=== PATIENT | female | born 1960 | race African-American/Black ===

== ENCOUNTER 2016-12-16 15:51 | Emergency (ER) | payer SELFPAY ==
[~2016-12-16] VITALS: Ht 160 cm; Wt 59.0 kg
[~2016-12-16 15:51] MED LIST: AMOX500T PO; CEPH-264 PO; CHLO15MO2 PO; HYDR-971 PO; PHEN-318 PO
[2016-12-16 16:55] VITALS: BP 150/70
[2016-12-16] MEDS ORDERED: DIPHTH,PERTUSS(ACELL),TET TOX 0.5 ML DISP.SYRIN. VAX IM ONE (17:45)
--- NOTE | 2016-12-16 18:04 | PHYS DOC ---
Past Medical History Past Medical History: No Pertinent History Past Surgical History: No Surgical History Alcohol Use: Heavy Additional Information: pt denies 12/16/16 Drug Use: None Adult General Chief Complaint Chief Complaint: SKIN RASH/ABSCESS HPI HPI Patient is a 56 year old female who presents with skin infections to bilateral lower extremity that began 2 weeks ago after wearing black socks at work. She states she started itching her lower extremities from wearing the socks and developed areas of redness. Patient denies any fever. Review of Systems Review of Systems Constitutional: See history of present illness Musculoskeletal: Denies back pain or joint pain [] Integument: Skin infection Neurologic: Denies headache, focal weakness or sensory changes [] Endocrine: Denies polyuria or polydipsia [] Current Medications Current Medications Current Medications Medications (Trade) Dose Ordered Sig/Lida Start Time Stop Time Status Last Admin Dose Admin Diphtheria/ Tetanus/Acell Pertussis (Boostrix) 0.5 ml ONCE ONCE 12/16/16 17:45 12/16/16 17:46 DC Allergies Allergies Allergies Coded Allergies Type Severity Reaction Last Updated Verified No Known Drug Allergies 03/01/14 No Physical Exam Physical Exam Constitutional: Well developed, well nourished, no acute distress, non-toxic appearance. [] Skin: Left lateral lower extremity with small amount of scattered areas of cellulitis. Right medial lower extremity with mild amount of red areas consistent with cellulitis. +2 bilateral pedal pulses. Negative Homans sign bilaterally. Back: No tenderness, no CVA tenderness. [] Extremities: No tenderness, no cyanosis, no clubbing, ROM intact, no edema. [] Neurologic: Alert and oriented X 3, normal motor function, normal sensory function, no focal deficits noted. [] Psychologic: Affect normal, judgement normal, mood normal. [] Current Patient Data Vital Signs Vital Signs Date Time Temp Pulse Resp B/P Pulse Ox O2 Delivery O2 Flow Rate FiO2 12/16/16 16:55 98.6 69 18 150/70 99 Room Air 98.6 EKG EKG [] Radiology/Procedures Radiology/Procedures [] Course & Med Decision Making Course & Med Decision Making Pertinent Labs and Imaging studies reviewed. (See chart for details) Patient has cellulitis to bilateral lower extremity which could've occurred from contact dermatitis from the socks she had to wear at work 2 weeks ago. Tetanus was updated, discharged with Bactrim for 10 days. Instructed to keep the area clean and dry. Recommended she does not wear long soaks until the infection has cleared up. Dragon Disclaimer Dragon Disclaimer This electronic medical record was generated, in whole or in part, using a voice recognition dictation system. Departure Departure Impression: Primary Impression: Cellulitis of lower extremity Disposition: HOME, SELF-CARE Condition: STABLE Referrals: NO PCP (PCP) Follow-up with your doctor in one week Patient Instructions: Cellulitis, [id number] Additional Instructions: You have skin infection to your lower extremities. Keep the area clean and dry. Complete your antibiotics. Do not wear socks over the infection. Scripts Sulfamethoxazole/Trimethoprim (Bactrim Ds Tablet)1 Each Tablet1 Tab PO BID #20 TAB Prov:FRANCO ZENDEJAS APRN 12/16/16 Problem Qualifiers Primary Impression: Cellulitis of lower extremity Laterality: unspecified laterality Qualified Code: L03.119 - Cellulitis of unspecified part of limb FRANCO ZENDEJAS APRN Dec 16, 2016 18:04
[2016-12-16] MEDS ORDERED: SULF1TAB24 PO (18:09)
== END 2016-12-16 18:23 | disposition home or self-care (01) ==
LOC: ER 15:51
DX: L03.116 Cellulitis of left lower limb (principal); L03.115 Cellulitis of right lower limb
CPT/HCPCS: 90471; 90715; 99283-25

== ENCOUNTER 2017-10-29 19:52 | Emergency (ER) | payer SELFPAY ==
[2017-10-29 20:52] LABS: BILIRUBIN,URINE NEGATIVE (NEG); CLARITY,URINE TURBID; COLOR,URINE YELLOW; GLUCOSE,URINE NEGATIVE (NEG); NITRITE,URINE NEGATIVE (NEG); PH,URINE 8.5; PROTEIN,URINE 100 mg/dL (NEG-TRACE)
[2017-10-29 20:58] LABS: AMORPHOUS SEDIMENT,UR PRESENT /HPF; BACTERIA,URINE FEW /HPF (0-FEW); RBC,URINE 0 /HPF (0-2); SQUAMOUS EPITHELIAL CELL,UR OCC /LPF
[2017-10-29] MEDS ORDERED: FAMOTIDINE 20 MG/2 ML VIAL IVP (21:00)
[2017-10-29] MEDS ORDERED: ONDANSETRON PF 4 MG/2 ML VIAL. IV (21:00)
[2017-10-29] MEDS ORDERED: IV NORMAL SALINE 1000ML BAG 1,000 ML IV (21:00)
[2017-10-29] MEDS ORDERED: CONTRAST GIVEN MC (21:15)
[2017-10-29] MEDS ORDERED: IOHEXOL 300 MG/ML 100ML VIAL. IV (21:30)
== END 2017-10-29 21:52 | disposition left against medical advice (07) ==
LOC: ER 21:52
DX: R10.13 Epigastric pain (principal); R11.2 Nausea with vomiting, unspecified
CPT/HCPCS: 81001; 87086; 99284

== ENCOUNTER 2017-12-18 14:42 | Emergency (ER) | payer SELFPAY ==
[2017-12-18 15:10] LABS: BILIRUBIN,URINE NEGATIVE (NEG); CLARITY,URINE CLOUDY; COLOR,URINE YELLOW; GLUCOSE,URINE NEGATIVE (NEG); NITRITE,URINE NEGATIVE (NEG); PH,URINE 5.5; PROTEIN,URINE NEGATIVE (NEG-TRACE); UROBILINOGEN,URINE 0.2 mg/dL (0.2 mg/dL)
[2017-12-18 15:24] LABS: BACTERIA,URINE FEW /HPF (0-FEW); SQUAMOUS EPITHELIAL CELL,UR FEW /LPF; WBC,URINE >40 /HPF (0-4)
== END 2017-12-18 15:36 | disposition home or self-care (01) ==
LOC: ER 14:42
DX: N39.0 Urinary tract infection, site not specified (principal)
CPT/HCPCS: 81001; 87086; 99284

== ENCOUNTER 2021-01-21 07:40 | Emergency (ER) | payer SELFPAY ==
[~2021-01-21] VITALS: Ht 160 cm; Wt 65.9 kg
[~2021-01-21 07:40] MED LIST changes: +HYDR-3164 PO; -HYDR-971 PO; +NITR100C62 PO; +SULF1TAB24 PO
[2021-01-21] MEDS ORDERED: IV NORMAL SALINE 500ML BAG 500 ML IV ONE (08:00)
[2021-01-21] MEDS ORDERED: KETOROLAC 15 MG/ML VIAL. IVP ONE (08:00)
[2021-01-21] MEDS ORDERED: fentaNYL PF VIAL 100 MCG/2 ML VIAL IVP ONE (08:00)
[2021-01-21] MEDS ORDERED: DEXAMETHASONE SOD PHOS 20 MG/5 ML VIAL. IV ONE (08:00)
--- NOTE | 2021-01-21 08:03 | ED.ADGEN ---
Past Medical History Past Medical History: No Pertinent History Past Surgical History: No Surgical History Smoking Status: Current Every Day Smoker Alcohol Use: None Drug Use: None General Adult EDM: Chief Complaint: SORE THROAT HPI: HPI: Patient is a 60 year old female coming in for throat pain and swelling since yesterday. Patient states she has had difficulty swallowing but is able to clear her own secretions. Does not take anything for pain. Denies any neck stiffness, fevers, cough, vomiting or diarrhea. Denies any prior history of problems with her tonsils. Review of Systems: Review of Systems: All other systems within normal limits except for as noted in the HPI Current Medications: Current Medications Medications (Trade) Dose Ordered Sig/Lida Start Time Stop Time Status Last Admin Dose Admin Amoxicillin/ Clavulanate Potassium (Augmentin 875/ 125mg) 1 tab 1X ONCE 01/21/21 10:00 01/21/21 10:01 DC 01/21/21 10:11 1 TAB Dexamethasone Sodium Phosphate (Decadron) 10 mg 1X ONCE 01/21/21 08:00 01/21/21 08:02 DC 01/21/21 08:10 10 MG Fentanyl Citrate (Fentanyl 2ml Vial) 75 mcg 1X ONCE 01/21/21 08:00 01/21/21 08:02 DC 01/21/21 08:15 75 MCG Info (CONTRAST GIVEN -- Rx MONITORING) 1 each PRN DAILY PRN 01/21/21 08:45 01/23/21 08:44 Iohexol (Omnipaque 300 Mg/ml) 75 ml 1X ONCE 01/21/21 08:45 01/21/21 08:46 DC 01/21/21 09:09 75 ML Ketorolac Tromethamine (Toradol 15mg Vial) 15 mg 1X ONCE 01/21/21 08:00 01/21/21 08:02 DC 01/21/21 08:14 15 MG Sodium Chloride 500 ml @ 500 mls/hr 1X ONCE 01/21/21 08:00 01/21/21 08:59 DC 01/21/21 08:12 500 MLS/HR Allergies: Allergies: Allergies Coded Allergies Type Severity Reaction Last Updated Verified No Known Drug Allergies 03/01/14 No Physical Exam: PE: Constitutional: Well developed, well nourished, no acute distress, non-toxic appearance. [] HENT: Normocephalic, atraumatic, bilateral external ears normal, nose normal. Swelling of left oropharynx, uvula shifted to right [] Eyes: PERRLA, conjunctiva normal, no discharge. [] Neck: No rigidity, supple, no stridor. Tenderness over left neck [] Cardiovascular: Regular rate and rhythm, brisk cap refill [] Lungs & Thorax: Non labored symmetric respirations, no tachypnea or respiratory distress [] Abdomen: Soft, nondistended. Skin: Warm, dry, no erythema, no rash. [] Back: Unremarkable Extremities: No deformities, range of motion grossly intact, no lower extremity edema [] Neurologic: Alert and oriented X 3, no focal deficits noted. [] Psychologic: Affect normal, judgement normal, mood normal. [] Current Patient Data: Labs: Laboratory Tests Test 01/21/21 08:08 White Blood Count 7.1 x10^3/uL (4.0-11.0) Red Blood Count 4.12 x10^6/uL (3.50-5.40) Hemoglobin 12.7 g/dL (12.0-15.5) Hematocrit 38.4 % (36.0-47.0) Mean Corpuscular Volume 93 fL (79-100) Mean Corpuscular Hemoglobin 31 pg (25-35) Mean Corpuscular Hemoglobin Concent 33 g/dL (31-37) Red Cell Distribution Width 14.7 % (11.5-14.5) H Platelet Count 221 x10^3/uL (140-400) Neutrophils (%) (Auto) 73 % (31-73) Lymphocytes (%) (Auto) 22 % (24-48) L Monocytes (%) (Auto) 5 % (0-9) Eosinophils (%) (Auto) 0 % (0-3) Basophils (%) (Auto) 0 % (0-3) Neutrophils # (Auto) 5.2 x10^3/uL (1.8-7.7) Lymphocytes # (Auto) 1.5 x10^3/uL (1.0-4.8) Monocytes # (Auto) 0.4 x10^3/uL (0.0-1.1) Eosinophils # (Auto) 0.0 x10^3/uL (0.0-0.7) Basophils # (Auto) 0.0 x10^3/uL (0.0-0.2) Sodium Level 143 mmol/L (136-145) Potassium Level 3.9 mmol/L (3.5-5.1) Chloride Level 107 mmol/L (98-107) Carbon Dioxide Level 24 mmol/L (21-32) Anion Gap 12 (6-14) Blood Urea Nitrogen 12 mg/dL (7-20) Creatinine 0.7 mg/dL (0.6-1.0) Estimated GFR (Cockcroft-Gault) 103.3 BUN/Creatinine Ratio 17 (6-20) Glucose Level 104 mg/dL (70-99) H Calcium Level 10.7 mg/dL (8.5-10.1) H Total Bilirubin 0.5 mg/dL (0.2-1.0) Aspartate Amino Transferase (AST) 17 U/L (15-37) Alanine Aminotransferase (ALT) 27 U/L (14-59) Alkaline Phosphatase 104 U/L (46-116) Total Protein 8.1 g/dL (6.4-8.2) Albumin 4.0 g/dL (3.4-5.0) Albumin/Globulin Ratio 1.0 (1.0-1.7) Laboratory Tests 01/21/21 08:08 Laboratory Tests 01/21/21 08:08 Vital Signs: Vital Signs Date Time Temp Pulse Resp B/P (MAP) Pulse Ox O2 Delivery O2 Flow Rate FiO2 01/21/21 07:53 98.4 96 20 153/87 (109) 95 Room Air 98.4 EKG: EKG: [] Heart Score: C/O Chest Pain: No Risk Factors: Risk Factors: DM, Current or recent (<one month) smoker, HTN, HLP, family history of CAD, obesity. Risk Scores: Score 0 - 3: 2.5% MACE over next 6 weeks - Discharge Home Score 4 - 6: 20.3% MACE over next 6 weeks - Admit for Clinical Observation Score 7 - 10: 72.7% MACE over next 6 weeks - Early Invasive Strategies Radiology/Procedures: Radiology/Procedures: CT NECK SOFT TISSUE WITH IV CONTRAST 01/21/2021 8:34 AM Indication: Left throat swelling COMPARISON: None available. TECHNIQUE: Multiple axial CT images of the neck were obtained after the intravenous administration of nonionic contrast. Coronal and sagittal reformats are provided. FINDINGS: No suspicious abnormality involving the visualized portions of the brain parenchyma and posterior fossa. Orbits are normal in appearance. Newspaper Library Manager space appears normal. Small mucus retention cyst identified in the left maxillary sinus. Oral cavity, floor of mouth and sublingual space appear normal. Parotid and submandibular glands are normal in appearance. There is no retropharyngeal effusion. Parapharyngeal fat is preserved. There is asymmetric enlargement of the left palatine tonsil without organized fluid collection. Findings may reflect tonsillitis. Hypopharynx is normal. Epiglottis, vallecula and piriform sinuses are normal. Larynx and trachea are normal. There is a left thyroid nodule measuring 2.1 x 1.9 cm. Visualized portions of the mediastinum appear normal. Subpleural reticular interstitial changes are identified in the anterior upper lobes. Paraseptal pulmonary emphysema. Left level 2 cervical lymph node measures 0.9 cm (series 2, image 64). Skull base is intact. There is moderate narrowing of the oropharyngeal airway. No suspicious osseous a bnormality. Mild cervical spondylosis. IMPRESSION: There is edema and asymmetric enlargement of the left palatine tonsil suggestive of tonsillitis. Underlying neoplastic process remains a differential consideration and short-term follow-up is recommended to ensure resolution. No organized fluid collection to suggest peritonsillar abscess. No retropharyngeal effusion. Borderline enlarged left level 2 cervical lymph node may be reactive. Attention on follow-up exam is recommended. Left thyroid nodule measures 2.1 x 1.19. Further catheterization with nonemergent thyroid ultrasound is recommended. [] Course & Med Decision Making: Course & Med Decision Making Pertinent Labs and Imaging studies reviewed. (See chart for details) [] Dragon Disclaimer: Dragon Disclaimer: This electronic medical record was generated, in whole or in part, using a voice recognition dictation system. Departure Departure Impression: Primary Impression: Acute bacterial tonsillitis Disposition: 01 HOME SELF CARE/HOMELESS Condition: STABLE Referrals: NO PCP (PCP) Patient Instructions: Viral and Bacterial Pharyngitis Scripts Acetaminophen With Codeine (ACETAMINOPHEN-COD #3 TABLET) 1 Each Tablet 1 TAB PO PRN Q6HRS PRN for PAIN for 3 Days, #10 TAB Prov: IMAN ROMO MD 01/21/21 Amoxicillin/Potassium Clav (AUGMENTIN 875-125 TABLET) 1 Each Tablet 1 TAB PO Q12HR for antibiotic for 10 Days, #20 TAB Prov: IMAN ROMO MD 01/21/21 IMAN ROMO MD Jan 21, 2021 08:03
[2021-01-21 08:17] LABS: BASO % 0 % (0-3); EOS % 0 % (0-3); HEMATOCRIT 38.4 % (36.0-47.0); HEMOGLOBIN 12.7 g/dL (12.0-15.5); LYMPH # 1.5 x10^3/uL (1.0-4.8); LYMPH % 22 % (24-48); MEAN CORPUSCULAR HEMOGLOBIN 31 pg (25-35); MEAN CORPUSCULAR HGB CONC 33 g/dL (31-37); MEAN CORPUSCULAR VOLUME 93 fL (79-100); MONO # 0.4 x10^3/uL (0.0-1.1); MONO % 5 % (0-9); NEUT # 5.2 x10^3/uL (1.8-7.7); NEUT % 73 % (31-73); PLATELET COUNT 221 x10^3/uL (140-400); RED BLOOD COUNT 4.12 x10^6/uL (3.50-5.40); RED CELL DISTRIBUTION WIDTH 14.7 % (11.5-14.5); WHITE BLOOD COUNT 7.1 x10^3/uL (4.0-11.0)
[2021-01-21 08:26] LABS: CALCIUM 10.7 mg/dL (8.5-10.1); CREATININE 0.7 mg/dL (0.6-1.0); GFR 103.3; POTASSIUM 3.9 mmol/L (3.5-5.1)
[2021-01-21 08:31] LABS: TOTAL BILIRUBIN 0.5 mg/dL (0.2-1.0); TOTAL PROTEIN 8.1 g/dL (6.4-8.2)
[2021-01-21] MEDS ORDERED: CONTRAST GIVEN. MC PRN (08:45)
[2021-01-21] MEDS ORDERED: IOHEXOL 300 MG/ML 100ML VIAL. IV ONE (08:45)
--- NOTE | 2021-01-21 09:22 | RAD ---
PQRS Compliance Statement: One or more of the following individualized dose reduction techniques were utilized for this examinat ion: 1. Automated exposure control 2. Adjustment of the mA and/or kV according to patient size 3. Use of iterative reconstruction technique CT NECK SOFT TISSUE WITH IV CONTRAST 01/21/2021 8:34 AM Indication: Left throat swelling COMPARISON: None available. TECHNIQUE: Multiple axial CT images of the neck were obtained after the intravenous administration of nonionic contrast. Coronal and sagittal reformats are provided. FINDINGS: No suspicious abnormality involving the visualized portions of the brain parenchyma and posterior fos sa. Orbits are normal in appearance. Post Doctoral Fellow space appears normal. Small mucus retention cyst iden tified in the left maxillary sinus. Oral cavity, floor of mouth and sublingual space appear normal. P arotid and submandibular glands are normal in appearance. There is no retropharyngeal effusion. Parap haryngeal fat is preserved. There is asymmetric enlargement of the left palatine tonsil without organ ized fluid collection. Findings may reflect tonsillitis. Hypopharynx is normal. Epiglottis, vallecula and piriform sinuses are normal. Larynx and trachea are normal. There is a left thyroid nodule measu ring 2.1 x 1.9 cm. Visualized portions of the mediastinum appear normal. Subpleural reticular interst itial changes are identified in the anterior upper lobes. Paraseptal pulmonary emphysema. Left level 2 cervical lymph node measures 0.9 cm (series 2, image 64). Skull base is intact. There is moderate n arrowing of the oropharyngeal airway. No suspicious osseous abnormality. Mild cervical spondylosis. IMPRESSION: There is edema and asymmetric enlargement of the left palatine tonsil suggestive of tonsillitis. Unde rlying neoplastic process remains a differential consideration and short-term follow-up is recommende d to ensure resolution. No organized fluid collection to suggest peritonsillar abscess. No retrophary ngeal effusion. Borderline enlarged left level 2 cervical lymph node may be reactive. Attention on fo llow-up exam is recommended. Left thyroid nodule measures 2.1 x 1.19. Further catheterization with nonemergent thyroid ultrasound is recommended. Electronically signed by: Natasha Lynch MD (01/21/2021 9:19 AM) [id number]
[2021-01-21] MEDS ORDERED: AMOXICILLIN/K CLAV 875/125MG TABLET. PO ONE (10:00)
[2021-01-21 10:06] VITALS: BP 144/75
[2021-01-21] MEDS ORDERED: AMOX1TAB61 PO (10:21)
[2021-01-21] MEDS ORDERED: ACET1TAB33 PO (10:21)
== END 2021-01-21 10:44 | disposition home or self-care (01) ==
LOC: ER 07:40
DX: J03.80 Acute tonsillitis due to other specified organisms (principal); B96.89 Other specified bacterial agents as the cause of diseases classified elsewhere; F17.200 Nicotine dependence, unspecified, uncomplicated
CPT/HCPCS: 36415; 70491; 80053; 85025; 87070; 87880; 96361; 96374; 96375; 99285; J1100; J1885; J3010; J7040; Q9967